=== PATIENT | male | born 1980 | race Caucasian/White ===

== ENCOUNTER 2016-11-27 06:51 | Emergency (ER) | payer OTHER ==
[~2016-11-27] VITALS: Ht 172.7 cm; Wt 89.1 kg
[2016-11-27] MEDS ORDERED: CYCLOBENZAPRINE HCL 10 MG TABLET PO ONE (08:00)
[2016-11-27] MEDS ORDERED: KETOROLAC TROMETHAMINE 30 MG/ML VIAL IM ONE (08:00)
[2016-11-27] MEDS ORDERED: OxyCODONE HCL/ACETAMINOPHEN 5-325 MG TABLET PO ONE (09:15)
[2016-11-27 09:46] VITALS: BP 119/88
== END 2016-11-27 09:48 | disposition home or self-care (01) ==
LOC: EMS 06:52
DX: M46.96 Unspecified inflammatory spondylopathy, lumbar region (principal)
CPT/HCPCS: 72100; 96372; 99284; J1885